=== PATIENT | female | born 1995 | race Two or more races ===

== ENCOUNTER → 2024-04-14 | Outpatient (CLI) | payer OTHER ==
[2024-04-14 15:41] LABS: Basophils # (auto) 0 10 ^3/uL (0-0.2); Basophils % (auto) 0.4 % (0.0-2.0); Eosinophils # (auto) 0.1 10 ^3/uL (0-0.8); Eosinophils % (auto) 1.4 % (0.0-7.0); Hematocrit 37.4 % (36.0-46.0); Hemoglobin 12.7 g/dL (12.2-16.2); Lymphocytes # (auto) 2.9 10 ^3/uL (0.4-5.4); Lymphocytes % (auto) 29.9 % (10.0-50.0); Mean Corpuscular Hemoglobin 30.2 pg (28.0-32.0); Mean Corpuscular Hgb Conc. 34.1 g/dL (32.0-36.0); Mean Corpuscular Volume 88.7 fL (80.0-100.0); Monocytes # (auto) 0.5 10 ^3/uL (0-1.3); Monocytes % (auto) 4.8 % (0.0-12.0); Neutrophils # (auto) 6.2 10 ^3/uL (1.6-8.6); Neutrophils % (auto) 63.5 % (37.0-80.0); Nucleated Red Blood Cells % 0.1 %; Red Blood Cells 4.22 10^6/uL (4.0-5.20); Red Cell Distribution Width 13.5 % (11.8-14.3); White Blood Cell 9.7 10^3/uL (4.4-10.8)
[2024-04-14 15:45] LABS: Urine Bacteria FEW /hpf (None Seen); Urine Blood Negative /uL (Negative); Urine Clarity Clear (Clear); Urine Color Yellow (Yellow); Urine Mucus FEW (None Seen); Urine Protein, UAD TRACE (Negative); Urine Specific Gravity 1.029 (1.001-1.035); Urine Urobilinogen Normal (Negative); Urine WBC 3 /hpf (0 - 5); Urine pH 5.5 (5.0-9.0)
[2024-04-14 16:07] LABS: Alanine Aminotransferase 14 U/L (7-40); Albumin 4.2 g/dL (3.2-4.8); Alkaline Phosphatase 47 U/L (46-116); Anion Gap 9 (5-15); Aspartate Aminotransferase 9 U/L (13-40); BUN/Creatinine Ratio 11.3 (10.0-20.0); Bilirubin, Total 0.4 mg/dL (0.2-1.0); Blood Urea Nitrogen 6 mg/dL (9-23); Calcium 9.7 mg/dL (8.7-10.4); Carbon Dioxide 24 mmol/L (20-30); Chloride 106 mmol/L (98-107); Glucose 104 mg/dL (74-106); Potassium 3.4 mmol/L (3.5-5.1); Sodium 139 mmol/L (136-145); Total Protein 7.1 g/dL (5.7-8.2)
[2024-04-14 16:09] LABS: Thyroid Stimulating Hormone 0.19 uIU/mL (0.358-3.74)
[2024-04-14 16:16] LABS: Beta HCG, Quantitative 46983.2 mIU/mL (1.5-4.2)
== END | disposition home or self-care (01) ==
LOC: LAB 15:23
PROVIDERS: ATTEND Internal Medicine
DX: R11.0 Nausea (principal); F40.298 Other specified phobia
CPT/HCPCS: 36415; 80053; 81001; 84439; 84443; 84702; 85025

== ENCOUNTER → 2024-09-22 | Outpatient (CLI) | payer MEDICAID ==
[2024-09-22 13:41] LABS: Basophils # (auto) 0 10 ^3/uL (0-0.2); Basophils % (auto) 0.3 % (0.0-2.0); Eosinophils # (auto) 0.1 10 ^3/uL (0-0.8); Eosinophils % (auto) 1.3 % (0.0-7.0); Hematocrit 34.5 % (36.0-46.0); Hemoglobin 11.8 g/dL (12.2-16.2); Lymphocytes # (auto) 2.3 10 ^3/uL (0.4-5.4); Lymphocytes % (auto) 25.6 % (10.0-50.0); Mean Corpuscular Hemoglobin 29.7 pg (28.0-32.0); Mean Corpuscular Hgb Conc. 34.1 g/dL (32.0-36.0); Mean Corpuscular Volume 87.3 fL (80.0-100.0); Monocytes # (auto) 0.7 10 ^3/uL (0-1.3); Monocytes % (auto) 8.4 % (0.0-12.0); Neutrophils # (auto) 5.7 10 ^3/uL (1.6-8.6); Neutrophils % (auto) 64.4 % (37.0-80.0); Platelet Count (auto) 205 10^3/uL (140-450); Red Blood Cells 3.95 10^6/uL (4.0-5.20); Red Cell Distribution Width 14.2 % (11.8-14.3); White Blood Cell 8.8 10^3/uL (4.4-10.8)
[2024-09-23 08:06] LABS: RPR Non Reactive (Non Reactive)
[2024-09-23 22:06] LABS: Chlamydia Trachomatis, NAA Negative (Negative); Neisseria gonorrhoeae, NAA Negative (Negative)
== END | disposition home or self-care (01) ==
LOC: LAB 13:24
PROVIDERS: ATTEND Obstetrics & Gynecology
DX: Z34.80 Encounter for supervision of other normal pregnancy, unspecified trimester (principal)
CPT/HCPCS: 36415; 85025; 86592

== ENCOUNTER 2024-10-28 11:13 | Observation (INO) | payer MEDICAID ==
--- NOTE | 2024-10-28 12:22 | DVH ---
Procedure: US BIOPHYSICAL PROFILE 10/28/2024 11:45 AM Indication: Term Gestation Comparison: None Technique: Sonogram of gravid uterus utilizing grayscale and color techniques. FINDINGS: Single living intrauterine gestation. Presentation: Cephalic Placenta: Anterior, no previa or abruption heart rate: 131 bpm OFE: 14.2 cm, DVP: 4.8 cm Maternal cervix: Not visualized Biophysical Profile: breathing score: 2 movement score: 2 tone: 2 Quantitative OFE score: 2 Total score: 8/8 IMPRESSION: 1. Single living as above. 2. Biophysical profile score: 8/8.
--- NOTE | 2024-10-28 15:16 | DVHDS2 ---
Physician Discharge Progress N Final Diagnosis: 40wks term Operations or Procedures: Operations or Procedures nst,sono 40wks Consultations: Consultations pt seen by airs Condition on Discharge: Good Disposition: Home Discharge Instructions: Diet: Regular Activity: No Restrictions, As Tolerated Medications: na Follow Up Care: Specialist: 2d Discharge Statement: "Patient was advised to return to the ER or call 911 if any headaches, dizziness, shortness of breath, chest pain, abdominal pain, bleeding, fevers, or worsening of medical condition. Patient was counseled about treatment plan, medications, possible side effects, patientverbalized understanding. All questions were answered to the best of my ability. This discharge took greater then 30 minutes in planning, reviewing documentation, counseling the patient, and discussing with other team members." Visit Coding OBGYN Date of Service: Oct 28, 2024 Billing Provider: MARIE ABDALLA DO COKE WHEELER Common Visit Codes: 73487-MML/OBS DISCH DAY <30MIN COKE WHEELER Consultation Codes: [id number] CONSULT <40MIN COKE WHEELER Procedure Codes: 09052-18- NON-STRESS TEST MARIE ABDALLA DO Oct 28, 2024 15:16
== END 2024-10-28 12:58 | disposition home or self-care (01) ==
LOC: LDRP 11:13
PROVIDERS: ADMIT Obstetrics & Gynecology; ATTEND Obstetrics & Gynecology
DX: O48.0 Post-term pregnancy (principal); Z98.890 Other specified postprocedural states; Z79.899 Other long term (current) drug therapy; Z3A.40 40 weeks gestation of pregnancy
CPT/HCPCS: 59025; 76818; 81002; 94760; G0378

== ENCOUNTER 2024-10-30 07:23 | Observation (INO) | payer MEDICAID ==
--- NOTE | 2024-10-30 12:45 | DVH ---
BIOPHYSICAL PROFILE HISTORY: Post Dates TECHNIQUE: Multiple transabdominal real-time grayscale sonographic images through the gravid uterus of the fetus with duplex Doppler color flow and M-mode spectral analysis FINDINGS: BIOPHYSICAL PROFILE: breathing score: 2 movement score: 2 tone score: 2 Quantitative OFE score: 2 (OFE: 10.6 Cm.) Total score: 8 The cervix not well visualized. Single live fetus in cephalic presentation. heart rate 143 beats per minute. Anterior/ fundal placenta without previa or abruption IMPRESSION: Biophysical profile score: 8
--- NOTE | 2024-10-30 16:19 | DVHDS2 ---
Physician Discharge Progress N Final Diagnosis: POSTDATES 40WKS Operations or Procedures: Operations or Procedures NST,EMILYO 40WKS Condition on Discharge: Good Disposition: Home Discharge Instructions: Diet: Regular Activity: No Restrictions, As Tolerated Medications: NA Follow Up Care: Specialist: 2D Discharge Statement: "Patient was advised to return to the ER or call 911 if any headaches, dizziness, shortness of breath, chest pain, abdominal pain, bleeding, fevers, or worsening of medical condition. Patient was counseled about treatment plan, medications, possible side effects, patientverbalized understanding. All questions were answered to the best of my ability. This discharge took greater then 30 minutes in planning, reviewing documentation, counseling the patient, and discussing with other team members." Visit Coding OBGYN Date of Service: Oct 30, 2024 Billing Provider: MARIE ABDALLA DO INSIDE SALES TRAINER Common Visit Codes: [id number] INP/OBS CARE(HIGH) INSIDE SALES TRAINER Procedure Codes: 83388-20- NON-STRESS TEST MARIE ABDALLA DO Oct 30, 2024 16:19
[2024-10-31] MEDS ORDERED: PREN-96 PO (13:19)
== END 2024-10-30 13:13 | disposition home or self-care (01) ==
LOC: LDRP 11:40
PROVIDERS: ADMIT Obstetrics & Gynecology; ATTEND Obstetrics & Gynecology
DX: O48.0 Post-term pregnancy (principal); Z3A.40 40 weeks gestation of pregnancy; Z79.899 Other long term (current) drug therapy
CPT/HCPCS: 59025; 76818; 81002; 94760; G0378

== ENCOUNTER 2024-10-31 08:05 | Inpatient (IN) | payer MEDICAID ==
[~2024-10-31] VITALS: Ht 152.4 cm; Wt 85.3 kg
[2024-10-31] MEDS ORDERED: LIDOCAINE 2%HCL (LOCAL ANESTH.) INJ 20ML MDV IJ PRN (08:30)
[2024-10-31] MEDS ORDERED: BUTORPHANOL TARTRATE 2 MG/1 ML VIAL IV PRN ×2 (08:30)
[2024-10-31] MEDS ORDERED: TERBUTALINE SULFATE 1 MG/ML 1ML VIAL SC PRN (08:45)
[2024-10-31] MEDS ORDERED: miSOPROStol 50 MCG per PRE-CUT 1/2 TAB PO PRN (08:45)
[2024-10-31] MEDS ORDERED: LACT. RINGERS/OXYTOCIN 20UNITS 1,000 ML IV SCH (08:45)
--- NOTE | 2024-10-31 09:10 | DVHHP2 ---
OB CC & HPI Date Date of Admission: Oct 31, 2024 Patient Identification: : 2 Para: 1 EDC: Oct 27, 2024 EGA: 40 4/7 Chief Complaints: Reason for admission: active labor Other reason for admission: Labor History of Present Complaints Good care early 14 weeks 12 week ultrasound confirming dates Past Medical History Cardiac: No pertinent Hx Pulmonary: No pertinent Hx Central Nervous System: No pertinent Hx GI: No pertinent Hx Hemotology/Oncology: No pertinent Hx Hepatobiliary: No pertinent Hx Psychiatric: No pertinent Hx Musculoskeletal: No pertinent Hx Rheumotologic: No pertinent Hx Infectious Disease: No peritnent Hx ENT: No pertinent Hx Renal/: No pertinent Hx Endocrine: No pertinent Hx Dermatology: No pertinent Hx Past Surgical History: No pertinent Hx OB History OB History Care: Good Care Ultrasounds: Normal mid trimester US Obstetrical Complications: None, Other ( strep B positive) Medical Complications: None Allergies: Coded Allergies: NO KNOWN ALLERGIES (Unverified , 10/31/24) Home Meds Reported Medications Vit W/ Ferrous Fumara ( One Daily) Daily Tab, 1 TAB PO DAILY, #90 TAB 3 Refills 10/31/24 Current Medications Current Medications Medications (Trade) Dose Ordered Sig/Lenin Route PRN Reason Start Time Stop Time Status Last Admin Lactated Ringer's 1,000 ml @ 125 mls/hr Q8H IV 10/31/24 08:30 UNV Witch Ashly (Tucks) 1 pad PRN PRN TOP PERINEAL AREA DISCOMFORT 10/31/24 08:30 UNV Sodium Lauryl Sulfate (Phisoderm) 240 ml PRN PRN TOP PERINEAL AREA DISCOMFORT 10/31/24 08:30 UNV Benzocaine (Dermoplast) 1 applic PRN PRN TOP PERINEAL AREA DISCOMFORT 10/31/24 08:30 UNV Butorphanol Tartrate (Stadol Injection) 1 mg Q4HPRN PRN IV MODERATE PAIN (4-6 PAIN SCALE) 10/31/24 08:30 UNV Butorphanol Tartrate (Stadol Injection) 2 mg Q4HPRN PRN IV SEVERE PAIN (7-10 PAIN SCALE) 10/31/24 08:30 UNV Lidocaine HCl (Xylocaine) 20 ml ONCE PRN IJ PERINEAL AREA DISCOMFORT 10/31/24 08:30 UNV Penicillin G Potassium [id number] units/Dextrose 50 ml @ 100 mls/hr Q4H IV 10/31/24 12:45 UNV Misoprostol (Cytotec) 50 mcg Q4HPRN PRN PO CERVICAL RIPENING 10/31/24 08:45 UNV Oxytocin 1,000 ml @ 6 ml/hr Q24H IV 10/31/24 08:45 UNV Terbutaline Sulfate (Brethine Inj) 0.25 mg ONCE PRN SC Uterine tachysystole 10/31/24 08:45 UNV Family & Social History Family/Social History Blood Type: A+ Rubella: immune RPR/VDRL: Negative GBS Status: Positive HBsAG: Negative Review of Systems Constitutional: No symptom reported Ears, Nose, & Throat: No symptom reported Eyes: No symptom reported Pulmonary/Respiratory: No symptom reported Cardiovascular: No symptom reported Gastrointestinal: No symptom reported Genitourinary: No symptom reported Musculoskeletal: No symptom reported Skin: No symptom reported Psychiatric: No symptom reported Endocrine: No symptom reported Hemotologic/Lymphatic: No symptom reported OB Admission Exam Physical Exam HEENT: TMs Normal, Fontanelles Normal, Nasal Mucosa Normal, Eyes non-injected, Oropharynx Normal, PERRLA, Moist Membranes, EOMI Heart: Rhythm Normal Lungs: Clear Abdomen: Non tender Extremities: Normal Reflexes: Normal OB Plan Plan Admitting Diagnosis: Labor/SROM Plan: Expectant Management VIKTORIYA GARCIA DO Oct 31, 2024 09:10
[2024-10-31 09:29] LABS: Basophils # (auto) 0 10 ^3/uL (0-0.2); Basophils % (auto) 0.5 % (0.0-2.0); Eosinophils # (auto) 0.1 10 ^3/uL (0-0.8); Eosinophils % (auto) 1.1 % (0.0-7.0); Hematocrit 37.1 % (36.0-46.0); Hemoglobin 12.2 g/dL (12.2-16.2); Lymphocytes # (auto) 2.4 10 ^3/uL (0.4-5.4); Lymphocytes % (auto) 28.5 % (10.0-50.0); Mean Corpuscular Hemoglobin 28.7 pg (28.0-32.0); Mean Corpuscular Volume 86.9 fL (80.0-100.0); Monocytes # (auto) 0.5 10 ^3/uL (0-1.3); Monocytes % (auto) 5.6 % (0.0-12.0); Neutrophils # (auto) 5.3 10 ^3/uL (1.6-8.6); Neutrophils % (auto) 64.3 % (37.0-80.0); Platelet Count (auto) 217 10^3/uL (140-450); Red Blood Cells 4.27 10^6/uL (4.0-5.20); Red Cell Distribution Width 15.7 % (11.8-14.3); White Blood Cell 8.3 10^3/uL (4.4-10.8)
[2024-10-31] MEDS: LACTATED RINGER'S 1,000 ML IV SCH (09:40)
[2024-10-31 09:45] LABS: Alanine Aminotransferase 14 U/L (7-40); Anion Gap 11 (5-15); Aspartate Aminotransferase 18 U/L (13-40); BUN/Creatinine Ratio 9.4 (10.0-20.0); Calcium 9.1 mg/dL (8.7-10.4); Carbon Dioxide 20 mmol/L (20-31); Chloride 105 mmol/L (98-107); Glucose 94 mg/dL (74-106); Potassium 3.6 mmol/L (3.5-5.1); Sodium 136 mmol/L (136-145)
[2024-10-31 09:46] LABS: Bilirubin, Total 0.3 mg/dL (0.2-1.0); Total Protein 6.8 g/dL (5.7-8.2)
[2024-10-31 09:49] LABS: Alkaline Phosphatase 236 U/L (46-116); Blood Urea Nitrogen 5 mg/dL (9-23)
[2024-10-31 10:08] LABS: INR 0.93 (0.9-1.15); Partial Thromboplastin Time 26.8 SEC (24.5-34.5); Prothrombin Time 9.9 sec (9.3-11.8)
[2024-10-31] MEDS: PENICILLIN G POT 5MIL/D5 50ML 50 ML IV ONE (10:32)
[2024-10-31] MEDS: DERMOPLAST 60ML BOTTLE TOP PRN (12:05)
[2024-10-31] MEDS: PHISODERM TOP SOLN 240ML BTL TOP PRN (12:06)
[2024-10-31] MEDS: WITCH HAZEL-GLYCERIN PAD TOP PRN (12:07)
[2024-10-31] MEDS: ePHEDrine SULFATE 50 MG/ML AMP IV ONE (12:30)
[2024-10-31] MEDS: NALOXONE HCL 0.4 MG/ML VIAL IV ONE (12:30)
[2024-10-31] MEDS ORDERED: PENICILLIN G POTASSIUM 2,500,000 UNITS in D5W 5% 50 ML IV SCH (12:45)
[2024-10-31] MEDS ORDERED: PREN-96 PO (13:19)
[2024-10-31] MEDS: PENICILLIN G POTASSIUM 2,500,000 UNITS in D5W 5% 50 ML IV SCH (14:44)
[2024-10-31] MEDS: fentaNYL CITRATE 100 MCG/2 ML VL IV ONE (15:07)
[2024-10-31] MEDS: ROPIVACAINE HCL 200 ML ONE (15:08)
--- NOTE | 2024-10-31 15:33 | EPIDURAL ---
Anesthesia Procedural Note - Epidural Informed consent obtained?: Yes Medication Administered: Fentanyl 100 mcg Sterile prept drape: Yes Spinal level of insertion: L4-L5 Test dose of lidocaine & Epine: Negative Infusion started: Yes Start time: 14:20 End time: 14:50 Procedure description Procedure description: Called for labor analgesia. Patient is at 40+4 weeks gestation requesting epidural prior to initiation of pitocin augmentation. History taken, chart reviewed and patient examined (BP 150/72 HR 100 spO2 99). Informed consent for CSE obtained. Sitting position, sterile prep and drape. Time out done at 1425. L4-5 space infiltrated with 1% lido. Epidural placed with THEA at 6cm. 25G pencil-point spinal needle +clear CSF. 15mcg fentanyl given IT at 1431 (BP 139/90 HR 94 spO2 99). Epidural catheter secured at 12cm. Aspiration and test dose )3cc 1.5% lido with epi) negative at 1434 (127/77 HR 85 spO2 99). 85mcg fentanyl given via epidural catheter at 1436 (BP109/67 HR 88 spO2 99). Patient reports good pain relief. 0.2% ropivacaine infusion started at 1446 (BP 122/63 HR 90 sPO2 99). Will follow as needed. SHELDON TRAN MD Oct 31, 2024 15:33
[2024-10-31 16:43] LABS: Urine Bacteria None Seen /hpf (None Seen)
[2024-10-31 17:03] LABS: Urine Blood Negative /uL (Negative); Urine Clarity Clear (Clear); Urine Color Light-Yellow (Yellow); Urine Protein, UAD Negative (Negative); Urine Squamous Epithelial Cell FEW /hpf (<5); Urine Urobilinogen Normal (Negative)
[2024-10-31 17:12] LABS: Cannabinoid Screen, Urine Neg (NEGATIVE)
[2024-10-31 17:17] LABS: Amphetamine Screen, Urine Neg (NEGATIVE); Barbiturate Scree,Urine Neg (NEGATIVE); Benzodiazephine Screen, Urine Neg (NEGATIVE); Cocaine Screen, Urine Neg (NEGATIVE); Opiate Scree,Urine Neg (NEGATIVE); Phencyclidine Screen, Urine Neg (NEGATIVE)
[2024-10-31 17:42] LABS: Urine WBC 4 /HPF (0-5)
[2024-10-31] MEDS: LACT. RINGERS/OXYTOCIN 20UNITS 500 ML IV ONE (22:59)
[2024-11-01] VITALS (12 sets, daily range): BP systolic 114–135; BP diastolic 56–74; PULSE 87–100; RESP 16–18; TEMP 97.8–99.5; O2SAT 96–98
[2024-11-01] MEDS ORDERED: ACETAMINOPHEN 325 MG TAB PO PRN (00:45)
[2024-11-01] MEDS ORDERED: ONDANSETRON HCL 4 MG/2 ML VIAL IV PRN (00:45)
[2024-11-01] MEDS: METHYLERGONOVINE MALEATE 0.2 MG/ML AMP IM ONE ×3 (00:49→02:49)
[2024-11-01] MEDS: LACT. RINGERS/OXYTOCIN 20UNITS 500 ML IV ONE (00:51)
[2024-11-01 00:53] LABS: Basophils # (auto) 0 10 ^3/uL (0-0.2); Basophils % (auto) 0.2 % (0.0-2.0); Eosinophils # (auto) 0 10 ^3/uL (0-0.8); Eosinophils % (auto) 0.1 % (0.0-7.0); Hematocrit 30.7 % (36.0-46.0); Hemoglobin 9.9 g/dL (12.2-16.2); Lymphocytes # (auto) 2.2 10 ^3/uL (0.4-5.4); Lymphocytes % (auto) 14.8 % (10.0-50.0); Mean Corpuscular Hgb Conc. 32.4 g/dL (32.0-36.0); Mean Corpuscular Volume 86.5 fL (80.0-100.0); Monocytes # (auto) 0.9 10 ^3/uL (0-1.3); Monocytes % (auto) 5.7 % (0.0-12.0); Neutrophils # (auto) 11.9 10 ^3/uL (1.6-8.6); Neutrophils % (auto) 79.2 % (37.0-80.0); Platelet Count (auto) 195 10^3/uL (140-450); Red Blood Cells 3.55 10^6/uL (4.0-5.20); Red Cell Distribution Width 15.7 % (11.8-14.3); White Blood Cell 15.1 10^3/uL (4.4-10.8)
[2024-11-01] MEDS: IBUPROFEN 600 MG TAB PO PRN (01:12)
[2024-11-01] MEDS ORDERED: METHYLERGONOVINE MALEATE 0.2 MG/ML AMP IM ONE (02:13)
--- NOTE | 2024-11-01 05:45 | LDN2 ---
Labor and Delivery Note Date 11/01/24 Age 29 2 Para 1 AB 0 EDC 40 + wks EGA 40+ weeks Diagnosis Labor SROM Vaginal Delivery: VTX Vacuum Assisted: No Placenta: Spontaneous (We had a group and did a repair her she poor and) Sex: Female (Deny that I repair) Weight pnd Apgars 9/9 Amniotic Fluid: Clear (Cuff) Anesthesia Epidural Episiotomy: No Extension: Yes (1st degree vaginal ) Repaired with 2-0 vicryl EBL 300cc subsequent to delivery patient had hemorrhage estimated as high as 1700 cc weighing sponges and obvious blood in the bag. Stat hemoglobin 9.0. Patient is symptomatic pale with low blood pressure immediately ordered 2 units transfused packed RBCs. Patient continued to have active bleeding and had slow response to Pitocin IV which was immediately started after delivery Methergine and Cytotec sublingual protocol; patient was consented for emergent D and C possible hysterectomy. Patient has noticed further desire for children she is a now . She understands that the potential is high for noted need to remove the uterus if she does not respond. Now at 5:43 a.m. she seems to be responding and were closely observe her keep her NPO will continue with her current blood transfusions uterus firm. Nevertheless Consent we discussed the risks benefits complications alternatives to D and C possible hysterectomy not limited to infection bleeding anesthesia acute chronic pain damage to adjacent organs nerves bladder ureters bowel acute chronic pain nerve entrapment scarring, Asherman's syndrome. We also discussed general risks of DVT PE mi stroke . All questions answered and encouraged patient adamantly wants to proceed as needed. Labs Blood Bank 10/31/24 09:00: Blood Type A POSITIVE Complications hemorrhage estimated 1700 cc at this point 2 units packed RBC ordered 1 unit infusing currently. Conditions Stable guarded Reflector Driller And Deburrer None present Comments/Significant Med Annabella hemorrhage VIKTORIYA GARCIA DO Nov 01, 2024 05:45
[2024-11-01] MEDS: ceFAZolin 2 GM/D5W50ml 50 ML IV ONE (07:56)
[2024-11-01 11:30] LABS: Basophils # (auto) 0.1 10 ^3/uL (0-0.2); Basophils % (auto) 0.6 % (0.0-2.0); Eosinophils # (auto) 0 10 ^3/uL (0-0.8); Eosinophils % (auto) 0.4 % (0.0-7.0); Hematocrit 32.7 % (36.0-46.0); Hemoglobin 10.8 g/dL (12.2-16.2); Lymphocytes # (auto) 2.9 10 ^3/uL (0.4-5.4); Lymphocytes % (auto) 22.7 % (10.0-50.0); Mean Corpuscular Hemoglobin 28.5 pg (28.0-32.0); Mean Corpuscular Hgb Conc. 33.1 g/dL (32.0-36.0); Mean Corpuscular Volume 86.2 fL (80.0-100.0); Monocytes # (auto) 0.9 10 ^3/uL (0-1.3); Monocytes % (auto) 6.9 % (0.0-12.0); Neutrophils % (auto) 69.4 % (37.0-80.0); Nucleated Red Blood Cells % 0.1 %; Platelet Count (auto) 160 10^3/uL (140-450); Red Blood Cells 3.79 10^6/uL (4.0-5.20); Red Cell Distribution Width 15.1 % (11.8-14.3); White Blood Cell 12.9 10^3/uL (4.4-10.8)
[2024-11-01] MEDS: ceFAZolin 1GM/50ML 50 ML IV SCH (14:10)
[2024-11-02 03:00] VITALS: BP 112/70; PULSE 84; RESP 18; TEMP 97.9; O2SAT 98
--- NOTE | 2024-11-02 05:35 | DVHPN2 ---
Chief Complaints Patient reports: Feels better Nursing reports: No new complaints, No abdominal pain, No chest pain, No dizziness, No cough, Other (minimal lochia) Objective Vitals Vital Signs Date Time Temp Pulse Resp B/P (MAP) Pulse Ox O2 Delivery O2 Flow Rate FiO2 11/02/24 03:00 97.9 84 18 112/70 (84) 98 97.9 11/01/24 19:00 Room Air Medications Current Medications Medications (Trade) Dose Ordered Sig/Lenin Route PRN Reason Start Time Stop Time Status Last Admin Cefazolin Sodium 50 ml @ 100 mls/hr Q8HR IV 11/01/24 14:00 11/02/24 05:27 General: Normal Neck: Normal Lungs: Normal Cardiovascular: Normal Abdominal: Normal (14 week size firm, pad count minimal lochia) Musculoskeletal: Normal Extremities: Normal Skin: Normal Neurological: Normal Studies Laboratory Tests 11/01/24 11:11 10/31/24 09:00 Test 10/31/24 09:00 Range/Units Serum Glucose 94 74-106 mg/dL Ass/Plan Assessment PPD #1 stable improved See DC summary See DC orders VIKTORIYA GARCIA DO Nov 02, 2024 05:35
--- NOTE | 2024-11-02 05:42 | DVHDS2 ---
Discharge Summary Date of Admission Oct 31, 2024 at 08:30 Date of Discharge: Nov 02, 2024 Admitting Diagnosis labor Wounds: perineal lac repaired Labs/Diagnostic Data: Laboratory Results Test 11/01/24 11:11 10/31/24 16:00 10/31/24 09:00 White Blood Count 12.9 10^3/uL (4.4-10.8) Red Blood Count 3.79 10^6/uL (4.0-5.20) Hemoglobin 10.8 g/dL (12.2-16.2) Hematocrit 32.7 % (36.0-46.0) Mean Corpuscular Volume 86.2 fL (80.0-100.0) Mean Corpuscular Hemoglobin 28.5 pg (28.0-32.0) Mean Corpuscular Hemoglobin Concent 33.1 g/dL (32.0-36.0) Red Cell Distribution Width 15.1 % (11.8-14.3) Platelet Count 160 10^3/uL (140-450) Mean Platelet Volume 8.8 fL (6.9-10.8) Neutrophils (%) (Auto) 69.4 % (37.0-80.0) Lymphocytes (%) (Auto) 22.7 % (10.0-50.0) Monocytes (%) (Auto) 6.9 % (0.0-12.0) Eosinophils (%) (Auto) 0.4 % (0.0-7.0) Basophils (%) (Auto) 0.6 % (0.0-2.0) Neutrophils # (Auto) 9.0 10 ^3/uL (1.6-8.6) Lymphocytes # (Auto) 2.9 10 ^3/uL (0.4-5.4) Monocytes # (Auto) 0.9 10 ^3/uL (0-1.3) Eosinophils # (Auto) 0 10 ^3/uL (0-0.8) Basophils # (Auto) 0.1 10 ^3/uL (0-0.2) Nucleated Red Blood Cells 0.1 % Urine Color Light-yellow (Yellow) Urine Clarity Clear (Clear) Urine pH 7.0 (5.0-9.0) Urine Specific [place] 1.010 (1.001-1.035) Urine Protein Negative (Negative) Urine Ketones 1+ (Negative) Urine Blood Negative /uL (Negative) Urine Nitrite Negative (Negative) Urine Bilirubin Negative (Negative) Urine Urobilinogen Normal mg/dL (Negative) Urine Leukocyte Esterase Negative /uL (Negative) Urine RBC 2 /hpf (0 - 4) Urine Microscopic WBC 4 /HPF (0-5) Urine Squamous Epithelial Cells Few /hpf (<5) Urine Bacteria None seen /hpf (None Seen) Urine Glucose Normal mg/dL (Normal) Urine Opiates Screen Neg (NEGATIVE) Urine Fentanyl Screen Neg (NEGATIVE) Urine Barbiturates Screen Neg (NEGATIVE) Urine Phencyclidine Screen Neg (NEGATIVE) Urine Amphetamines Screen Neg (NEGATIVE) Urine Benzodiazepines Screen Neg (NEGATIVE) Urine Cocaine Screen Neg (NEGATIVE) Urine Cannabinoids Screen Neg (NEGATIVE) Prothrombin Time 9.9 sec (9.3-11.8) Prothrombin Time INR 0.93 (0.9-1.15) Activated Partial Thromboplast Time 26.8 SEC (24.5-34.5) Sodium Level 136 mmol/L (136-145) Potassium Level 3.6 mmol/L (3.5-5.1) Chloride Level 105 mmol/L (98-107) Carbon Dioxide Level 20 mmol/L (20-31) Anion Gap 11 (5-15) Blood Urea Nitrogen 5 mg/dL (9-23) Creatinine 0.53 mg/dL (0.550-1.02) Glomerular Filtration Rate Calc 128 mL/min (>90) BUN/Creatinine Ratio 9.4 (10.0-20.0) Serum Glucose 94 mg/dL (74-106) Calcium Level 9.1 mg/dL (8.7-10.4) Total Bilirubin 0.3 mg/dL (0.2-1.0) Aspartate Amino Transferase (AST) 18 U/L (13-40) Alanine Aminotransferase (ALT) 14 U/L (7-40) Alkaline Phosphatase 236 U/L (46-116) Total Protein 6.8 g/dL (5.7-8.2) Albumin 4.0 g/dL (3.2-4.8) Hepatitis C Antibody Negative (Negative) Other Laboratory Tests 11/01/24 11:11 10/31/24 09:00 Brief Hx & Hospital Course: patient had followed by PP hemorrhage requiring Cytotec, Methergine, Pitocin , and 2 Units PRBCs Consults/Reason for consult n/a Operations or Procedures none Condition at Discharge: Good Final Diagnosis/Problems List s/p post hemorrhage Discharge Disposition: Home Discharge Instruct/Medications Diet: Regular Activity: Light activity Activity comment: pelvic rest 8 weeks , no driving 1 week Follow Up/Referral: primary OB 2 weeks or prn Medications: tylenol prn Discharge Statement: "Patient was advised to return to the ER or call 911 if any headaches, dizziness, shortness of breath, chest pain, abdominal pain, bleeding, fevers, or worsening of medical condition. Patient was counseled about treatment plan, medications, possible side effects, patientverbalized understanding. All questions were answered to the best of my ability. This discharge took greater then 30 minutes in planning, reviewing documentation, counseling the patient, and discussing with other team members." ASSESSMENT ASSESSMENT Assessment s/p post hemorrhage Visit Coding OBGYN Date of Service: Nov 02, 2024 Billing Provider: VIKTORIYA GARCIA DO DITCH TENDER Common Visit Codes: [id number] INP/OBS CARE(LOW) DITCH TENDER Consultation Codes: 79693-T/U INPATIENT CONSULT (HIGH) DITCH TENDER Procedure Codes: 46875-RSF DELIVERY ONLY VIKTORIYA GARCIA DO Nov 02, 2024 05:42
[2024-11-02 06:39] LABS: Basophils # (auto) 0.1 10 ^3/uL (0-0.2); Basophils % (auto) 0.6 % (0.0-2.0); Eosinophils # (auto) 0.2 10 ^3/uL (0-0.8); Eosinophils % (auto) 1.9 % (0.0-7.0); Hematocrit 29.2 % (36.0-46.0); Hemoglobin 9.9 g/dL (12.2-16.2); Lymphocytes # (auto) 3.5 10 ^3/uL (0.4-5.4); Lymphocytes % (auto) 33.4 % (10.0-50.0); Mean Corpuscular Hemoglobin 29.4 pg (28.0-32.0); Mean Corpuscular Hgb Conc. 33.8 g/dL (32.0-36.0); Mean Corpuscular Volume 87.1 fL (80.0-100.0); Monocytes # (auto) 0.6 10 ^3/uL (0-1.3); Monocytes % (auto) 5.8 % (0.0-12.0); Neutrophils # (auto) 6.2 10 ^3/uL (1.6-8.6); Neutrophils % (auto) 58.3 % (37.0-80.0); Nucleated Red Blood Cells % 0.1 %; Platelet Count (auto) 145 10^3/uL (140-450); Red Blood Cells 3.35 10^6/uL (4.0-5.20); Red Cell Distribution Width 15.4 % (11.8-14.3); White Blood Cell 10.6 10^3/uL (4.4-10.8)
[2024-11-02 06:54] VITALS: BP 109/62; PULSE 79; RESP 17; TEMP 97.4; O2SAT 97
[2024-11-02 11:11] VITALS: BP 115/56; PULSE 94; RESP 17; TEMP 98; O2SAT 97
[2024-11-03 04:07] LABS: RPR Non Reactive (Non Reactive)
[2024-11-03 11:07] LABS: Treponema Pallidum Ab LC Non Reactive (Non Reactive)
== END 2024-11-02 11:30 | disposition home or self-care (01) | DRG 560 ==
LOC: LDRP 08:05 → OBSVTOIN 08:30 → LDRP 08:34
PROVIDERS: ADMIT Obstetrics & Gynecology; ATTEND Obstetrics & Gynecology
PROC: 10E0XZZ Delivery of Products of Conception, External Approach (ICD-10-PCS; principal; 2024-11-01)
PROC: 30233N1 Transfusion of Nonautologous Red Blood Cells into Peripheral Vein, Percutaneous Approach (ICD-10-PCS; 2024-11-01)
PROC: 3E0R3BZ Introduction of Anesthetic Agent into Spinal Canal, Percutaneous Approach (ICD-10-PCS; 2024-11-01)
PROC: 00HU33Z Insertion of Infusion Device into Spinal Canal, Percutaneous Approach (ICD-10-PCS; 2024-11-01)
PROC: 0HQ9XZZ Repair Perineum Skin, External Approach (ICD-10-PCS; 2024-11-01)
DX: O48.0 Post-term pregnancy (principal); Z37.0 Single live birth; O72.1 Other immediate postpartum hemorrhage; Z3A.40 40 weeks gestation of pregnancy; O70.0 First degree perineal laceration during delivery
CPT/HCPCS: 36415; 36430; 59025; 59409; 62282; 80053; 80307; 81001; 81002; 85025; 85610; 85730; 86592; 86780; 86803; 86850; 86900; 86901; 86920; 94760; 96360; 96361; 96372; G0378; J2540; J2590; J7060